=== PATIENT | female | born 1945 | race Two or more races ===

== ENCOUNTER 2016-05-12 20:20 | Emergency (ER) | payer MEDICAID, OTHER ==
[~2016-05-12] VITALS: Ht 147.3 cm; Wt 50.3 kg
[2016-05-12] MEDS ORDERED: SODIUM CHLORIDE 0.9% 1,000 ML IVB ONE (20:48)
[2016-05-12 20:51] LABS: Basophils # (auto) 0.1 uL; Basophils % (auto) 0.7 % (0.0-2.0); Eosinophils # (auto) 0.1 uL; Eosinophils % (auto) 1.3 % (0.0-7.0); Hematocrit 38.4 % (36.0-46.0); Hemoglobin 12.7 g/dL (12.2-16.2); Lymphocytes # (auto) 2.6 uL; Mean Corpuscular Hemoglobin 29.1 pg (28.0-32.0); Mean Corpuscular Hgb Conc. 33.1 g/dL (32.0-36.0); Mean Corpuscular Volume 88.1 fL (80.0-100.0); Mean Platelet Volume 8.1 fL (7.4-10.4); Neutrophils # (auto) 4.2 uL; Platelet Count (auto) 461 10^3/uL (140-450); Red Cell Distribution Width 14.1 % (11.6-16.0)
[2016-05-12 21:20] LABS: INR 1.01 (0.9-1.15); Partial Thromboplastin Time 28.5 sec (22.64-33.71); Prothrombin Time 10.4 sec (9.37-12.3)
[2016-05-12 21:22] LABS: Albumin 3.2 g/dL (3.4-5.0); Alkaline Phosphatase 117 U/L (45-117); Anion Gap 10 (5-15); Aspartate Aminotransferase 17 U/L (15-37); Bilirubin, Total 0.3 mg/dL (0.2-1.0); Blood Urea Nitrogen 16 mg/dL (7-18); Calcium 8.6 mg/dL (8.5-10.1); Carbon Dioxide 25 mmol/L (21-32); Chloride 108 mmol/L (98-107); GFR African American 86 mL/min; GFR Non-African American 71 mL/min; Glucose 104 mg/dL (74-106); Magnesium 2.6 mg/dL (1.6-2.6); Sodium 143 mmol/L (136-145); Total Protein 8.1 g/dL (6.4-8.2)
[2016-05-12 21:45] LABS: B-Type Natriuretic Peptide 31.94 pg/mL (0-100)
[2016-05-12 21:46] LABS: Temperature: 22.4 C (20.0-25.0)
[2016-05-13 01:44] VITALS: BP 124/70
== END 2016-05-13 03:27 | disposition home or self-care (01) ==
LOC: ER 20:21
DX: R55 Syncope and collapse (principal); I10 Essential (primary) hypertension; R51 Headache; F17.210 Nicotine dependence, cigarettes, uncomplicated; E78.5 Hyperlipidemia, unspecified; R06.02 Shortness of breath
CPT/HCPCS: 36415; 71010; 80053; 82962; 83735; 83880; 84443; 84484; 85025; 85379; 85610; 85730; 93005; 96360